=== PATIENT | female | born 1950 | race American Indian/Alaskan Native ===

== ENCOUNTER 2022-06-21 15:14 | Emergency (ER) | payer MEDICARE ==
[2022-06-21] MEDS ORDERED: SODIUM CHLORIDE 0.9% 1000 ML 1,000 ML ONE (20:14)
[2022-06-22] MEDS ORDERED: FAMOTIDINE 20 MG/2 ML INJ IV ONE (01:29)
[2022-06-22] MEDS ORDERED: SODIUM CHLORIDE 0.9% 1000 ML 1,000 ML IV ONE (01:29)
[2022-06-22] MEDS ORDERED: dexAMETHasone 4 MG/ML VIAL IV ONE (01:29)
[2022-06-22] MEDS ORDERED: diphenhydrAMINE 50 MG/ML VIAL IV ONE (01:31)
--- NOTE | 2022-06-22 02:37 | Emergency Department Report ---
ED General Adult HPI - General Chief complaint: Allergic Reaction Stated complaint: ALLERGIC REACTION Time Seen by Provider: 06/21/22 16:06 Source: patient, family Mode of arrival: Ambulatory Limitations: No Limitations - History of Present Illness Initial comments: 72-year-old female past medical history hypertension reports to the ER with angioedema to upper and lower lips. Patient reportedly takes lisinopril 20 mg once a day. Patient reports no other new medications or foods recently. Patient denies shortness of breath. No airway concerns. Nonlabored breathing noted. No other acute signs or symptoms noted Severity scale (0 -10): 0 - Related Data Home Medications Medication Instructions Recorded Confirmed Last Taken Lisinopril 20 mg PO DAILY 06/21/22 06/21/22 06/21/22899 Montelukast 10 mg PO DAILY 06/21/22 06/21/22 06/21/22 Probiotic 1 tab PO DAILY 06/21/22 06/21/22 06/21/22 Spironolact/Hydrochlorothiazid 1 PO 06/21/22 06/21/22 Trelegy Ellipta 200-62.5-25 1 06/21/22 06/21/22 Previous Rx's Medication Instructions Recorded Last Taken Type amLODIPine 5 mg PO DAILY 30 Days #30 tab 06/22/22 Unknown Rx predniSONE [Deltasone] 20 mg PO QDAY 5 Days #5 tab 06/22/22 Unknown Rx Allergies Allergy/AdvReac Type Severity Reaction Status Date / Time lisinopril Allergy Swelling Verified 06/21/22 17:13 ED Review of Systems ROS: Stated complaint: ALLERGIC REACTION Other details as noted in HPI Comment: All other systems reviewed and negative ENT: other (Upper and lower lip swelling noted.) Respiratory: other (Nonlabored breathing). denies: shortness of breath Cardiovascular: denies: chest pain ED Past Medical Hx - Past Medical History Previous Medical History?: Yes Hx Hypertension: Yes Hx Psychiatric Treatment: Yes (OCD) Additional medical history: upper resp infection - Surgical History Past Surgical History?: No - Medications Home Medications: Home Medications Medication Instructions Recorded Confirmed Last Taken Type Lisinopril 20 mg PO DAILY 06/21/22 06/21/22 06/21/22 History 0900 Montelukast 10 mg PO DAILY 06/21/22 06/21/22 06/21/22 History Probiotic 1 tab PO DAILY 06/21/22 06/21/22 06/21/22 History Spironolact/Hydrochlorothiazid 1 PO 06/21/22 06/21/22 History Claudio Booker 200-62.5-25 1 06/21/22 06/21/22 History amLODIPine 5 mg PO DAILY 30 Days #30 tab 06/22/22 Unknown Rx predniSONE [Deltasone] 20 mg PO QDAY 5 Days #5 tab 06/22/22 Unknown Rx ED Physical Exam - General Limitations: No Limitations General appearance: alert, in no apparent distress - Head Head exam: Present: atraumatic, normocephalic - Eye Eye exam: Present: normal appearance, PERRL, EOMI - ENT ENT exam: Present: mucous membranes moist, other (Upper and lower lip swelling. No tongue swelling.) - Neck Neck exam: Present: normal inspection - Respiratory Respiratory exam: Present: normal lung sounds bilaterally. Absent: respiratory distress, wheezes, rales, rhonchi - Cardiovascular Cardiovascular Exam: Present: regular rate, normal rhythm. Absent: systolic murmur, diastolic murmur, rubs, gallop - GI/Abdominal GI/Abdominal exam: Present: soft, normal bowel sounds - Extremities Exam Extremities exam: Present: normal inspection - Back Exam Back exam: Present: normal inspection - Neurological Exam Neurological exam: Present: alert, oriented X3 - Psychiatric Psychiatric exam: Present: normal affect, normal mood - Skin Skin exam: Present: warm, dry, intact, normal color. Absent: rash ED Course Vital Signs 06/21/22 06/22/22 06/22/22 17:09 02:06 02:36 Temperature 98.1 F Pulse Rate 97 H 82 72 Respiratory 18 16 16 Rate Blood Pressure 191/93 Blood Pressure 225/180 229/99 [Right] O2 Sat by Pulse 96 97 97 Oximetry 06/22/22 06/22/22 06/22/22 02:47 03:02 03:37 Temperature Pulse Rate 91 H Respiratory Rate Blood Pressure 209/109 Blood Pressure 227/94 170/92 [Right] O2 Sat by Pulse Oximetry ED Medical Decision Making - Medical Decision Making 72-year-old female past medical history hypertension reports to the ER with angioedema to upper and lower lips. Patient reportedly takes lisinopril 20 mg once a day. Patient reports no other new medications or foods recently. Patient denies shortness of breath. No airway concerns. Nonlabored breathing noted. No other acute signs or symptoms noted. Patient has upper and lower lip swelling. No tongue swelling. No airway concern. Nonlabored breathing. Patient started on Pepcid IV, Decadron IV, Benadryl IV, 1 L normal saline. After patient received IV medication. There was there was a decrease in swelling to lips. Patient still reports no airway concerns this time. Patient reports she is feeling better. Patient informed to discontinue taking lisinopril and to follow her primary care provider for further evaluation of hypertension. Patient started on low-dose amlodipine 5 mg daily. Patient agrees with plan of care verbalized understanding. Patient asymptomatic with elevated blood pressure. Vital Signs 06/21/22 06/22/22 06/22/22 17:09 02:06 02:36 Temperature 98.1 F Pulse Rate 97 H 82 72 Respiratory 18 16 16 Rate Blood Pressure 191/93 Blood Pressure 225/180 229/99 [Right] O2 Sat by Pulse 96 97 97 Oximetry 06/22/22 06/22/22 06/22/22 02:47 03:02 03:37 Temperature Pulse Rate 91 H Respiratory Rate Blood Pressure 209/109 Blood Pressure 227/94 170/92 [Right] O2 Sat by Pulse Oximetry Critical care attestation.: If time is entered above; I have spent that time in minutes in the direct care of this critically ill patient, excluding procedure time. ED Disposition Clinical Impression: Allergy to lisinopril HTN (hypertension) Qualifiers: Hypertension type: primary hypertension Qualified Code(s): I10 - Essential ( primary) hypertension Disposition: 01 HOME / SELF CARE / HOMELESS Is pt being admited?: No Condition: Stable Instructions: Drug Allergy, Hypertension, Adult, [id number], Hypertension (ED) Prescriptions: amLODIPine 5 mg PO DAILY 30 Days #30 tab predniSONE [Deltasone] 20 mg PO QDAY 5 Days #5 tab Referrals: RALPH BERTRAND JR, MD [Primary Care Provider] - 3-5 Days
[2022-06-22] MEDS ORDERED: amLODIPine 5 MG TAB PO ONE (03:21)
[2022-06-22 03:37] VITALS: BP 209/109
== END 2022-06-22 03:58 | disposition home or self-care (01) ==
LOC: ED 15:14
DX: I10 Essential (primary) hypertension (principal); T46.4X5A Adverse effect of angiotensin-converting-enzyme inhibitors, initial encounter; F42.9 Obsessive-compulsive disorder, unspecified; Y92.89 Other specified places as the place of occurrence of the external cause
CPT/HCPCS: 96361; 96374; 96375; 99283; J1100; J1200; J3490; J7030